=== PATIENT | female | born 1995 | race Caucasian/White ===

== ENCOUNTER 2019-04-21 21:14 | Emergency (ER) | payer SELFPAY ==
[2019-04-21] MEDS ORDERED: Lidocaine 1% 10 ML MDV INJECT ONE (21:44)
[2019-04-21] MEDS ORDERED: Diphtheria,Pertussis(Acell),Tetanus Vaccine 0.5 ML Syringe IM ONE (21:44)
[2019-04-21] MEDS ORDERED: Acetaminophen/oxyCODONE 325-5 MG Tab PO ONE (21:57)
--- NOTE | 2019-04-21 22:04 | EDM.PDOC ---
ED HPI GENERAL MEDICAL PROBLEM - General Chief Complaint: Laceration Stated Complaint: SLICED KNUCKLE OF RIGHT MIDDLE FINGER Time Seen by Provider: 04/21/19 21:42 Source of Information: Reports: Patient, RN Notes Reviewed History Limitations: Reports: No Limitations - History of Present Illness INITIAL COMMENTS - FREE TEXT/NARRATIVE: Patient is a 24-year-old female who presents to the ED for evaluation of a right middle finger laceration. The patient states that she was using a mandolin, and slicing vegetables at home when she ended up slicing her knuckle inadvertently. This is on the dorsal aspect of the DIP joint of the third finger on the right hand. This is an avulsion type injury, there is no skin flap noted. This was measured at roughly 1 cm. The bleeding is pretty well controlled at this time. Patient does not think that she is up-to-date on her tetanus vaccination however. She is still able to move the finger distal to the site of injury, she has feeling to the finger distal to the site of injury Right Finger-Middle Pain Score (Numeric/FACES): 3 - Related Data Allergies Allergy/AdvReac Type Severity Reaction Status Date / Time fentanyl Allergy Itching Verified 04/21/19 21:39 Home Meds: Home Meds . [No Known Home Meds] 04/21/19 [History] Past Medical History - Past Surgical History Female Surgical History: Reports: Section Neurological Surgical History: Reports: Discectomy Musculoskeletal Surgical History: Reports: ORIF Social & Family History - Tobacco Use Smoking Status *Q: Never Smoker - Caffeine Use Caffeine Use: Reports: Coffee - Recreational Drug Use Recreational Drug Use: No ED ROS GENERAL - Review of Systems Review Of Systems: ROS reveals no pertinent complaints other than HPI. Skin: Reports: Wound (1 cm avulsion type injury to 3rd digit of right hand) Neurological: Denies: Numbness, Tingling Psychiatric: Reports: No Symptoms Hematologic/Lymphatic: Denies: Anemia, Easy Bleeding ED EXAM, SKIN/RASH Exam: See Below Exam Limited By: No Limitations General Appearance: Alert, WD/WN, No Apparent Distress Respiratory/Chest: No Respiratory Distress, Lungs Clear, Normal Breath Sounds, No Accessory Muscle Use, Chest Non-Tender Cardiovascular: Normal Peripheral Pulses, Regular Rate, Rhythm, No Murmur Peripheral Pulses: 3+: Radial (L), Radial (R) Extremities: Normal Inspection, Normal Range of Motion, Normal Capillary Refill Neurological: Alert, Oriented, Normal Cognition, No Motor/Sensory Deficits Psychiatric: Normal Affect, Normal Mood Skin: Warm, Dry, Normal Color, No Rash, Wound/Incision (Roughly 1 cm avulsion type skin laceration to the dorsal aspect of the third digits DIP joint.) ED SKIN PROCEDURES - Laceration/Wound Repair Right Dorsal Digit - 3rd (Middle) Appearance: Superficial, Clean Distal NVT: Neuro & Vascular Intact, No Tendon Injury Skin Prep: Chlorhexidine (Hibiciens) Saline Irrigation (cc's): 250 Exploration/Debridement/Repair: Wound Explored, In a Bloodless Field, Explored to Base Closed with: Other (Bacitracin will be placed on the wound, any pressure type dressing will be utilized for wound management at this time) Lac/Wound length In cm: 1 Sterile Dressing Applied: Nurse Tetanus Status Addressed: Yes Complications: No Course - Vital Signs Last Recorded V/S: Last Vital Signs Temp 97.2 F 04/21/19 21:35 Pulse 91 04/21/19 21:35 Resp 16 04/21/19 21:35 BP 139/91 H 04/21/19 21:35 Pulse Ox 100 04/21/19 21:35 - Orders/Labs/Meds Orders: Active Orders 24 hr Category Date Time Status Vaccines to be Administered [RC] PER UNIT ROUTINE Care 04/21/19 21:44 Ordered Acetaminophen/oxyCODONE [Percocet 325-5 MG] Med 04/21/19 21:57 Once 1 tab PO ONETIME ONE Medication Orders Oxycodone/Acetaminophen (Percocet 325-5 Mg) 1 tab PO ONETIME ONE Stop: 04/21/19 21:58 Meds: Medications Generic Name Dose Route Start Last Admin Trade Name Freq PRN Reason Stop Dose Admin Oxycodone/Acetaminophen 1 tab 04/21/19 21:57 Percocet 325-5 Mg PO 04/21/19 21:58 ONETIME ONE Discontinued Medications Generic Name Dose Route Start Last Admin Trade Name Freq PRN Reason Stop Dose Admin Diphtheria/Tetanus/Acell Pertussis 0.5 ml 04/21/19 21:44 04/21/19 21:56 Adacel IM 04/21/19 21:45 0.5 ml .ONCE ONE Administration Lidocaine HCl 10 ml 04/21/19 21:44 Xylocaine 1% INJECT 04/21/19 21:45 ONETIME ONE - Re-Assessments/Exams Free Text/Narrative Re-Assessment/Exam: 04/21/19 22:04 Patient presents to the ED for the evaluation of a laceration to her right middle digit. There is nothing to be able to suture. The wound will be dressed with bacitracin, and a pressure type dressing will be placed around the finger to provide wound management today. The patient will be shown how to change the dressing and has been educated on how to wash the wound daily. One tablet of Percocet will be given for tonight's purposes so she might get some sleep. Patient was unsure of her tetanus status, so this will be updated at [facility]'s visit as well. Departure - Departure Time of Disposition: 22:06 Disposition: Home, Self-Care 01 Condition: Fair Clinical Impression: Laceration of middle finger of right hand without complication Qualifiers: Encounter type: initial encounter Qualified Code(s): S61.212A - Laceration without foreign body of right middle finger without damage to nail, initial encounter - Discharge Information *PRESCRIPTION DRUG MONITORING PROGRAM REVIEWED*: No *COPY OF PRESCRIPTION DRUG MONITORING REPORT IN PATIENT TOREY: No Instructions: Nonsutured Laceration Care Referrals: PCP,None [Primary Care Provider] - Additional Instructions: Your evaluated in the ER [facility] for your laceration on your middle finger of your right hand. Unfortunately there was no skin flap to repair, your wound was dressed with bacitracin and you were shown how to apply a pressure bandage to the wound. You were given one tablet of Percocet for pain relief for tonight, please take the tablet as soon as your home and in bed. Do not drive while taking this medication. Your tetanus booster was updated at [facility]'s visit. Wound management and dressing changes were explained and demonstrated to you. Please keep an eye out for signs of infection like increased redness, swelling, any fevers or chills you may develop if these should occur you should seek care for reevaluation immediately. - My Orders Last 24 Hours: My Active Orders 04/21/19 21:44 Vaccines to be Administered [RC] PER UNIT ROUTINE 04/21/19 21:57 Acetaminophen/oxyCODONE [Percocet 325-5 MG] 1 tab PO ONETIME ONE - Assessment/Plan Last 24 Hours: My Active Orders 04/21/19 21:44 Vaccines to be Administered [RC] PER UNIT ROUTINE 04/21/19 21:57 Acetaminophen/oxyCODONE [Percocet 325-5 MG] 1 tab PO ONETIME ONE
== END 2019-04-21 22:12 | disposition home or self-care (01) ==
LOC: JD.ED 21:14
DX: S61.212A Laceration without foreign body of right middle finger without damage to nail, initial encounter (principal); Z23 Encounter for immunization; W26.0XXA Contact with knife, initial encounter
CPT/HCPCS: 12001; 90471; 90700; 99282; A9270; 99283

== ENCOUNTER 2019-08-17 09:05 | Day surgery (SDC) | payer OTHER ==
[~2019-08-17 09:05] MED LIST: Lactated Ringers 1,000 ML IV SCH; Lidocaine 1%/Sod Bicarbonate in NS 8.4% 1 ML Syringe IDERM PRN; Midazolam 1 MG/ML 2 ML SDV ONE; Propofol 200 MG/20 ML SDV ONE; Sodium Chloride 0.9% 10 ML Syringe FLUSH PRN
--- NOTE | 2019-08-17 09:30 | PCM.PREANE ---
Preanesthetic Assessment - Procedure Proposed Procedure: diagnostic egd - Anesthesia/Transfusion/Family Hx Anesthesia History: Prior Anesthesia Without Reaction Family History of Anesthesia Reaction: No Transfusion History: Prior Transfusion Without Reaction - Review of Systems General: No Symptoms Pulmonary: No Symptoms Cardiovascular: No Symptoms Gastrointestinal: Abdominal Pain Neurological: Tingling ("left siatic nerve - back surgery") Other: Reports: None - Physical Assessment NPO Status Date: 08/16/19 NPO Status Time: 00:00 Height: 1.7 m Weight: 84 kg ASA Class: 2 Mental Status: Alert & Oriented x3 Airway Class: Mallampati = 1 Dentition: Reports: Normal Dentition, [place](s) Thyro-Mental Finger Breadths: 3 Mouth Opening Finger Breadths: 3 ROM/Head Extension: Full Lungs: Clear to Auscultation, Normal Respiratory Effort Cardiovascular: Regular Rate, Regular Rhythm - Allergies Allergies/Adverse Reactions: Allergies Allergy/AdvReac Type Severity Reaction Status Date / Time fentanyl Allergy Itching Verified 08/16/19 10:24 - Blood Blood Available: No Product(s) Available: None - Anesthesia Plan Pre-Op Medication Ordered: None - Acknowledgements Anesthesia Type Planned: MAC Pt an Appropriate Candidate for the Planned Anesthesia: Yes Alternatives and Risks of Anesthesia Discussed w Pt/Guardian: Yes Pt/Guardian Understands and Agrees with Anesthesia Plan: Yes PreAnesthesia Questionnaire HEENT History: Reports: None Cardiovascular History: Reports: None Respiratory History: Reports: Asthma Gastrointestinal History: Reports: GERD, Other (See Below) Other Gastrointestinal History: abdominal pain Genitourinary History: Reports: None 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 Musculoskeletal History: Reports: Back Pain, Chronic Neurological History: Reports: Migraines Psychiatric History: Reports: Anxiety, Depression Endocrine/Metabolic History: Reports: None Hematologic History: Reports: None Immunologic History: Reports: None Oncologic (Cancer) History: Reports: None Dermatologic History: Reports: None - Past Surgical History Head Surgeries/Procedures: Reports: None HEENT Surgical History: Reports: None Cardiovascular Surgical History: Reports: None Respiratory Surgical History: Reports: None GI Surgical History: Reports: None Female Surgical History: Reports: Section Male Surgical History: Reports: None Endocrine Surgical History: Reports: None Neurological Surgical History: Reports: Discectomy Musculoskeletal Surgical History: Reports: ORIF, Other (See Below) Other Musculoskeletal Surgeries/Procedures:: low back surgery Oncologic Surgical History: Reports: None Dermatological Surgical History: Reports: None - SUBSTANCE USE Smoking Status *Q: Former Smoker Tobacco Use Within Last Twelve Months: Cigarettes Second Hand Smoke Exposure: No Days Per Week of Alcohol Use: 0 Number of Drinks Per Day: 0 Total Drinks Per Week: 0 Recreational Drug Use History: No - HOME MEDS Home Medications: Home Meds Escitalopram [Lexapro] 10 mg PO DAILY 08/16/19 [History] Fluticasone Propionate [Flonase] 1 dose NASBOTH BID PRN 08/16/19 [History] Pantoprazole Sodium [Protonix] 40 mg PO DAILY 08/16/19 [History] traZODone HCl [Trazodone HCl] 50 mg PO BEDTIME PRN 08/16/19 [History] - CURRENT (IN HOUSE) MEDS Current Meds: Current Medications Lactated Ringer's (Ringers, Lactated) 1,000 mls @ 125 mls/hr IV ASDIRECTED MELANY Stop: 08/17/19 23:00 Lidocaine/Sodium Bicarbonate (Buffered Lidocaine 1% In Ns 8.4%) 0.25 ml IDERM ONETIME PRN PRN Reason: Prior to IV Start Stop: 08/17/19 18:00 Sodium Chloride (Saline Flush) 10 ml FLUSH ASDIRECTED PRN PRN Reason: Keep Vein Open Stop: 08/17/19 18:00 Discontinued Medications Midazolam HCl (Versed 1 Mg/Ml) Confirm Administered Dose 2 mg .ROUTE .STK-MED ONE Stop: 08/17/19 08:43 Propofol (Diprivan 20 Ml) Confirm Administered Dose 400 mg .ROUTE .STK-MED ONE Stop: 08/17/19 08:43
--- NOTE | 2019-08-17 10:13 | PCM48HPAN ---
Post Anesthesia Note - EVALUATION WITHIN 48HRS OF ANESTHETIC Vital Signs in Normal Range: Yes Patient Participated in Evaluation: Yes Respiratory Function Stable: Yes Airway Patent: Yes Cardiovascular Function Stable: Yes Hydration Status Stable: Yes Pain Control Satisfactory: Yes Nausea and Vomiting Control Satisfactory: Yes Mental Status Recovered: Yes Vital Signs: Last Vital Signs Temp 36.6 C 08/17/19 09:15 Pulse 75 08/17/19 09:15 Resp 16 08/17/19 09:15 BP 103/65 08/17/19 09:15 Pulse Ox 98 08/17/19 09:15
--- NOTE | 2019-08-17 11:22 | PCM.PRNOTE ---
- Free Text/Narrative Note: Date: 08/17/2019 Procedure: diagnostic EGD Indication: epigastric pain, reflux Endoscopist: Donte Bocanegra MD Findings: no abnormal findings. Mucosal biopsies of antrum and distal esophagus obtained. Detailed Report: The patient was taken to the endoscopy suite and placed in left lateral decubitus position. Monitored anesthesia care was initiated, and timeout was performed. A bite-block was placed, and the lubricated endoscope was inserted into the mouth and advanced to the duodenum. The second portion of the duodenum was visualized and appeared normal. The duodenal bulb appeared normal. There was no abnormality noted with the pylorus, and cold forceps was used for mucosal biopsy of the gastric antrum. The body of the stomach appeared normal, and on retroflexion of the scope in the stomach, the fundus appeared normal, with no evidence of hiatal hernia. No gastric ulcers or masses were noted. The Z line appeared normal, and a biopsy of the distal esophagus just proximal to the Z line was obtained. The remainder of the esophagus appeared normal. The patient tolerated the procedure well. Donte Bocanegra MD General Surgery
== END 2019-08-17 10:59 | disposition home or self-care (01) ==
LOC: JD.SDS 09:05
PROVIDERS: ATTEND Surgery
DX: K21.0 Gastro-esophageal reflux disease with esophagitis (principal); G89.29 Other chronic pain; R10.13 Epigastric pain; F41.9 Anxiety disorder, unspecified; F32.9 Major depressive disorder, single episode, unspecified; J45.909 Unspecified asthma, uncomplicated; G43.909 Migraine, unspecified, not intractable, without status migrainosus; Z87.891 Personal history of nicotine dependence; Z88.5 Allergy status to narcotic agent; Z79.1 Long term (current) use of non-steroidal anti-inflammatories (NSAID); Z79.899 Other long term (current) drug therapy
CPT/HCPCS: 43239; 81025; J2250; J2704; J7120; 00731